=== PATIENT | female | born 1985 | race African-American/Black ===

== ENCOUNTER 2021-01-28 14:49 | Emergency (ER) | payer MEDICAID ==
[~2021-01-28] VITALS: Ht 172.7 cm; Wt 61.2 kg
--- NOTE | 2021-01-28 14:50 | NUR ---
EDGARD WANG VIA GURNEY TO BED 02.
[2021-01-28 14:59] VITALS: BP 143/93
--- NOTE | 2021-01-28 15:10 | NUR ---
35 Y FEMALE BIBA FROM STREETS DUE TO ABDOMINAL PAIN X1 WEEK. PER EMS PT STATED SHE HAS HAD GENERALIZED ABDOMINAL PAIN THAT IS TENDER TO THE TOUCH. PT STATED THE PAIN IS CURRENTLY 12/06. PT +N/-V AT THIS TIME. ABDOMEN IS TENDER TO TOUCH AT THIS TIME. PT STATED SHE HAS ALSO FELT FATIGUED X1 WEEK. PT DENIES ANY CHEST PAIN, SOB, FEVER/CHILLS AT THIS TIME PMH: DENIES NKA
[2021-01-28] MEDS ORDERED: NACL 0.9% 1,000 ML IV SCH (15:20)
[2021-01-28] MEDS ORDERED: KETOROLAC 30 MG/ML VIAL IVP ONE (15:20)
[2021-01-28] MEDS ORDERED: ONDANSETRON 4 MG/2 ML VIAL IVP ONE (15:20)
--- NOTE | 2021-01-28 15:30 | NUR ---
20 G IV ESTABLISHED IN L AC. BLOOD WORK COLLECTED AND HANDED TO EXTERIOR WORK HELPER BEDSIDE
--- NOTE | 2021-01-28 15:35 | NUR ---
DR. RIOS BEDSIDE EVALUATING PT
[2021-01-28 15:38] LABS: BASOPHILS # (AUTO) 0.1 K/uL (0.00-0.22); BASOPHILS % (AUTO) 1.1 % (0.0-2.0); EOSINOPHILS % (AUTO) 0.9 % (0.0-4.0); HEMATOCRIT 34.8 % (36-48); HEMOGLOBIN 11.6 g/dL (12.0-16.0); LYMPHOCYTES # (AUTO) 1.4 K/uL (2.5-16.5); MEAN CORPUSCULAR HEMOGLOBIN 29 pg (27-31); MEAN CORPUSCULAR HGB CONC 33 g/dL (33-37); MEAN CORPUSCULAR VOLUME 86.2 fL (80-94); MONOCYTES # (AUTO) 0.8 K/uL (0.8-1.0); MONOCYTES % (AUTO) 13.8 % (1.7-9.3); NEUTROPHILS # (AUTO) 3.2 K/uL (1.8-7.7); NEUTROPHILS % (AUTO) 59.2 % (42.2-75.2); PLATELET COUNT (AUTO) 338 K/uL (140-450); RED BLOOD CELL COUNT(AUTO) 4.03 MIL/uL (4.20-5.40); RED CELL DISTRIBUTION WIDTH 14.5 % (11.6-13.7); WHITE BLOOD COUNT (AUTO) 5.4 K/uL (4.8-10.8)
[2021-01-28 15:54] LABS: APPEARANCE,URINE HAZY (CLEAR); BILIRUBIN,URINE NEGATIVE (NEGATIVE); BLOOD, URINE NEGATIVE (NEGATIVE); COLOR,URINE YELLOW (YELLOW); LEUKOCYTE ESTERASE ,URINE TRACE (NEGATIVE); NITRITE, URINE NEGATIVE (NEGATIVE); PH,URINE 5.5 (5.0-9.0); UGLUCOSE NEGATIVE (NEGATIVE)
[2021-01-28 15:58] LABS: ALBUMIN 3.6 g/dL (3.4-5.0); ANION GAP 12.2 (8-16); CARBON DIOXIDE 28.1 mmol/L (21-32); CREATININE 0.7 mg/dL (0.6-1.3); POTASSIUM 3.3 mmol/L (3.5-5.1); TOTAL BILIRUBIN 0.7 mg/dL (0.0-1.0)
--- NOTE | 2021-01-28 16:01 | NUR ---
PT TAKEN TO CT VIA W/C
--- NOTE | 2021-01-28 16:10 | NUR ---
PT RETURNED TO BED [address] VIA W/C. PT PROVIDED WITH WARM BLANKET
[2021-01-28 16:42] LABS: RBC,URINE 0-5 /HPF (0-5)
[2021-01-28] MEDS ORDERED: IBUP-2213 PO (17:00)
[2021-01-28] MEDS ORDERED: CIPR500T4 PO (17:00)
[2021-01-28 17:22] VITALS: BP 140/83
--- NOTE | 2021-01-28 17:22 | NUR ---
Patient discharged with v/s stable. Written and verbal after care instructions given and explained. Patient alert, oriented and verbalized understanding of instructions. Ambulatory with steady gait. All questions addressed prior to discharge. ID band removed. Patient advised to follow up with PMD. Rx of CIPRO AND IBUPROFEN given. Patient educated on indication of medication including possible reaction and side effects. Opportunity to ask questions provided and answered. PT PROVIDED WITH BUS PASS AND HOMELESS RESROUCE PACKET
== END 2021-01-28 17:22 | disposition home or self-care (01) ==
LOC: MED 14:49
DX: N39.0 Urinary tract infection, site not specified (principal); Z98.890 Other specified postprocedural states
CPT/HCPCS: 36415; 74176; 80053; 81001; 81025; 83690; 85025; 87086; 96361; 96374; 96375; 99284; J1885; J2405; J7030

== ENCOUNTER 2021-12-28 21:01 | Emergency (ER) | payer MEDICAID ==
[~2021-12-28] VITALS: Ht 172.7 cm; Wt 63.0 kg
[2021-12-28 21:01] VITALS: BP 155/98
[~2021-12-28 21:01] MED LIST: CIPR500T4 PO; IBUP-2213 PO
--- NOTE | 2021-12-28 21:01 | NUR ---
TO LOBBY AMBULATORY
[2021-12-29 00:21] LABS: BASOPHILS % (AUTO) 0.6 % (0.0-2.0); EOSINOPHILS # (AUTO) 0.2 K/uL (0-0.4); EOSINOPHILS % (AUTO) 3.6 % (0.0-4.0); HEMATOCRIT 33.7 % (36-48); HEMOGLOBIN 11.1 g/dL (12.0-16.0); LYMPHOCYTES # (AUTO) 1.5 K/uL (2.5-16.5); LYMPHOCYTES % (AUTO) 31.1 % (20.5-51.1); MEAN CORPUSCULAR HEMOGLOBIN 28 pg (27-31); MEAN CORPUSCULAR HGB CONC 33 g/dL (33-37); MEAN CORPUSCULAR VOLUME 85.6 fL (80-94); MONOCYTES # (AUTO) 0.5 K/uL (0.8-1.0); MONOCYTES % (AUTO) 10.8 % (1.7-9.3); NEUTROPHILS # (AUTO) 2.6 K/uL (1.8-7.7); NEUTROPHILS % (AUTO) 53.9 % (42.2-75.2); PLATELET COUNT (AUTO) 358 K/uL (140-450); RED BLOOD CELL COUNT(AUTO) 3.94 MIL/uL (4.20-5.40); RED CELL DISTRIBUTION WIDTH 15.4 % (11.6-13.7); WHITE BLOOD COUNT (AUTO) 4.8 K/uL (4.8-10.8)
[2021-12-29] MEDS ORDERED: KETOROLAC 15 MG/ML VIAL IVP ONE (00:30)
[2021-12-29] MEDS ORDERED: ONDANSETRON 4 MG/2 ML VIAL IVP ONE (00:30)
[2021-12-29] MEDS ORDERED: NACL 0.9% 1,000 ML IV ONE (00:30)
[2021-12-29] MEDS ORDERED: PANTOPRAZOLE 40 MG INJ VIAL IVP ONE (00:30)
[2021-12-29 00:33] LABS: ALBUMIN 3.2 g/dL (3.4-5.0); ANION GAP 10.6 (8-16); CARBON DIOXIDE 29.2 mmol/L (21-32); CREATININE 0.7 mg/dL (0.6-1.3); POTASSIUM 3.8 mmol/L (3.5-5.1); TOTAL BILIRUBIN 0.4 mg/dL (0.0-1.0)
--- NOTE | 2021-12-29 00:50 | NUR ---
PT TO BED 12
--- NOTE | 2021-12-29 01:09 | NUR ---
PT TAKEN TO CT VIA MADDY
[2021-12-29] MEDS ORDERED: PANT40EC PO (05:03)
[2021-12-29] MEDS ORDERED: ONDA-188 PO (05:03)
[2021-12-29] MEDS ORDERED: DOCU-299 PO (05:04)
[2021-12-29 05:51] VITALS: BP 155/98
--- NOTE | 2021-12-30 08:45 | NUR ---
LATE ENTRY-IVF/IVP MEDS
== END 2021-12-29 05:50 | disposition home or self-care (01) ==
LOC: MED 21:01
DX: K21.9 Gastro-esophageal reflux disease without esophagitis (principal); K59.00 Constipation, unspecified
CPT/HCPCS: 36415; 74176; 80053; 81025; 83605; 83690; 85025; 87040; 96361; 96374; 96375; 99284; C9113; J1885; J2405; J7030